=== PATIENT | male | born 1955 | race African-American/Black ===

== ENCOUNTER 2019-01-29 07:43 | Inpatient (IN) | payer SELFPAY ==
[~2019-01-29] VITALS: Ht 185.4 cm; Wt 81.8 kg
[2019-01-29] MEDS ORDERED: IPRATROPIUM BROMIDE (0.02%) 0.5MG/2.5ML NEB HHN STA (08:05)
[2019-01-29] MEDS ORDERED: ALBUTEROL (0.083%) 2.5MG/3ML NEB HHN STA (08:05)
[2019-01-29] MEDS ORDERED: METHYLPREDNISOLONE SOD SUCC 125 MG/2 ML VIAL IV STA (08:05)
[2019-01-29] MEDS ORDERED: ASPIRIN 81MG TABLET PO ONE (08:15)
[2019-01-29 09:16] LABS: BASOPHILS % 0.3 % (0.0-2.0); LYMPHOCYTES % 8.3 % (20.0-50.0); MEAN CORPUSCULAR HEMOGLOBIN 29.7 pg (28.0-32.0); MEAN CORPUSCULAR VOLUME 93.1 fL (80.0-94.0); MEAN PLATELET VOLUME 9.2 fl (7.4-10.4); NEUTROPHILS % 86.4 % (40.0-76.0); PLATELET 167 x1000/uL (130-400); RED BLOOD CELL COUNT 2.24 mill/uL (4.7-6.1); RED CELL DISTRIBUTION WIDTH 17.2 % (11.6-14.6)
[2019-01-29 09:17] LABS: CHLORIDE 110 mEq/L (98-107)
[2019-01-29 09:20] LABS: HEMATOCRIT. 20.9 % (42.0-52.0); HEMOGLOBIN. 6.7 g/dL (14.0-18.0)
[2019-01-29 09:44] LABS: D-DIMER 3.17 mg/L FEU (<0.50); PARTIAL THROMBOPLASTIN TIME 26.1 sec (23.4-31.0); PROTHROMBIN TIME 10.5 sec (9.6-11.0)
[2019-01-29] MEDS ORDERED: LIDOCAINE HCL 1% 20ML VIAL (Pyxis) INJ ONE (11:42)
[2019-01-29] MEDS ORDERED: SODIUM BICARBONATE 4% (2.4MEQ) 5ML VIAL IV ONE (11:42)
[2019-01-29] MEDS ORDERED: SODIUM BICARBONATE 8.4% 1 MEQ/ML 50ML SYR IV ONE (14:00)
[2019-01-29 14:27] LABS: CREATINE KINASE 744 IU/L (39-308)
[2019-01-29] MEDS ORDERED: HYDRALAZINE 20MG/ML VIAL IV PRN (15:45)
[2019-01-29] MEDS ORDERED: IPRATROPIUM/ALBUTEROL 0.5-3(2.5)MG/3ML NEB HHN PRN (15:45)
[2019-01-29] MEDS ORDERED: MAGNESIUM/ALUMINUM HYDROXIDE/SIMETHICONE 30ML UDC PO PRN (15:45)
[2019-01-29] MEDS ORDERED: ONDANSETRON HCL 4MG/2ML INJ IV PRN (15:45)
[2019-01-29] MEDS ORDERED: SODIUM POLYSTYRENE SULFONATE 15 G/60 ML BOT PO ONE (16:30)
[2019-01-29 21:30] VITALS: BP 181/44
[2019-01-29 21:41] VITALS: BP 150/110
[2019-01-29 22:00] VITALS: BP 102/68
[2019-01-29] MEDS: NITROGLYCERIN OINT 1GM/INCH UDPKT TD SCH (22:00)
[2019-01-30] VITALS (17 sets, daily range): BP systolic 97–166; BP diastolic 62–102
[2019-01-30] MEDS: EPOETIN ALFA 10000UNITS/ML VIAL SUBCUT SCH (03:01)
[2019-01-30] MEDS: FAMOTIDINE 20MG TABLET PO SCH ×2 (03:01→21:50)
[2019-01-30] MEDS: NITROGLYCERIN OINT 1GM/INCH UDPKT TD SCH ×4 (03:01→21:50)
[2019-01-30] MEDS: CLONIDINE 0.1MG TABLET PO PRN (03:01)
[2019-01-30] MEDS: SODIUM CHLORIDE 0.9% INJ 3ML FLUSH IVF SCH ×4 (03:03→21:51)
[2019-01-30 06:52] LABS: BASOPHILS % 0.2 % (0.0-2.0); LYMPHOCYTES % 9.4 % (20.0-50.0); MEAN CORPUSCULAR HEMOGLOBIN 30.5 pg (28.0-32.0); MEAN CORPUSCULAR VOLUME 91.2 fL (80.0-94.0); MEAN PLATELET VOLUME 9.7 fl (7.4-10.4); MONOCYTES % 8.5 % (2.0-8.0); NEUTROPHILS % 81.9 % (40.0-76.0); PLATELET 116 x1000/uL (130-400); RED BLOOD CELL COUNT 1.77 mill/uL (4.7-6.1); RED CELL DISTRIBUTION WIDTH 16.6 % (11.6-14.6)
[2019-01-30 07:43] LABS: PHOSPHORUS 6.5 mg/dL (2.5-4.9)
[2019-01-30 08:32] LABS: HEMATOCRIT. 16.2 % (42.0-52.0); HEMOGLOBIN. 5.4 g/dL (14.0-18.0)
[2019-01-30 09:35] LABS: CLARITY URINE CLEAR (CLEAR); COLOR URINE RED (YELLOW); KETONES URINE NEGATIVE (NEGATIVE); LEUKOCYTE ESTERASE URINE TRACE (NEGATIVE); NITRITE URINE NEGATIVE (NEGATIVE); OCCULT BLOOD URINE 3+ (NEGATIVE); PH URINE 6.5 (4.5-8.0); PROTEIN URINE 2+ (NEGATIVE); SPECIFIC GRAVITY URINE 1.011 (1.005-1.030); UROBILINOGEN URINE 0.2 E.U./dL (0.2-1.0)
[2019-01-30] MEDS ORDERED: AMLODIPINE 2.5MG TABLET PO SCH (11:00)
[2019-01-30 12:10] LABS: TOTAL IRON BINDING CAPACITY 187 ug/dL (250-450)
[2019-01-30] MEDS: AMLODIPINE 5MG TABLET PO SCH ×2 (17:49→21:50)
[2019-01-30] MEDS: ATORVASTATIN CALCIUM 20MG TABLET PO SCH (21:49)
[2019-01-30] MEDS: METOPROLOL TARTRATE 25MG TABLET PO SCH (21:50)
[2019-01-31] VITALS (21 sets, daily range): BP systolic 127–165; BP diastolic 71–104
[2019-01-31] MEDS: NITROGLYCERIN OINT 1GM/INCH UDPKT TD SCH ×3 (05:46→23:00)
[2019-01-31] MEDS: SODIUM CHLORIDE 0.9% INJ 3ML FLUSH IVF SCH ×2 (05:47→22:00)
[2019-01-31 06:43] LABS: BASOPHILS % 0.3 % (0.0-2.0); EOSINOPHILS % 0.7 % (0.0-5.0); HEMATOCRIT. 23.5 % (42.0-52.0); HEMOGLOBIN. 7.8 g/dL (14.0-18.0); LYMPHOCYTES % 15.5 % (20.0-50.0); MEAN CORPUSCULAR HEMOGLOBIN 29.6 pg (28.0-32.0); MEAN CORPUSCULAR VOLUME 88.5 fL (80.0-94.0); MEAN PLATELET VOLUME 9.4 fl (7.4-10.4); MONOCYTES % 10.3 % (2.0-8.0); NEUTROPHILS % 73.2 % (40.0-76.0); PLATELET 103 x1000/uL (130-400); RED BLOOD CELL COUNT 2.65 mill/uL (4.7-6.1); RED CELL DISTRIBUTION WIDTH 18.5 % (11.6-14.6)
[2019-01-31 07:01] LABS: CREATINE KINASE MB FRACTION 2.9 ng/mL (0.5-3.6)
[2019-01-31 07:07] LABS: PHOSPHORUS 5.9 mg/dL (2.5-4.9)
[2019-01-31] MEDS: METOPROLOL TARTRATE 25MG TABLET PO SCH ×2 (08:07→22:59)
[2019-01-31] MEDS: AMLODIPINE 5MG TABLET PO SCH ×2 (08:09→23:00)
[2019-01-31] MEDS ORDERED: CEFAZOLIN 1000MG PREMIX 50 ML IV SCH (11:30)
[2019-01-31] MEDS ORDERED: CEFAZOLIN 1000MG PREMIX 50 ML IV ONE (12:47)
[2019-01-31] MEDS ORDERED: SODIUM BICARBONATE 4% (2.4MEQ) 5ML VIAL IV ONE (12:47)
[2019-01-31] MEDS ORDERED: LIDOCAINE HCL 1% 20ML VIAL (Pyxis) INJ ONE ×2 (12:47→13:42)
[2019-01-31] MEDS ORDERED: FENTANYL CITRATE/PF 50MCG/ML 2ML VIAL ONE (12:51)
[2019-01-31] MEDS ORDERED: FENTANYL CITRATE/PF 50MCG/ML 2ML VIAL IV ONE ×2 (13:15→13:25)
[2019-01-31] MEDS ORDERED: FENTANYL CITRATE/PF 50MCG/ML 2ML VIAL IV SCH (14:00)
[2019-01-31 15:31] LABS: HEPATITIS B SURFACE AB < 3.1 mIU/mL
[2019-01-31 15:41] LABS: HEPATITIS B SURFACE ANTIGEN NEGATIVE
[2019-01-31] MEDS: ATORVASTATIN CALCIUM 20MG TABLET PO SCH (22:59)
[2019-01-31] MEDS: FAMOTIDINE 20MG TABLET PO SCH (23:00)
[2019-01-31] MEDS: EPOETIN ALFA 10000UNITS/ML VIAL SUBCUT SCH (23:01)
[2019-02-01] VITALS (11 sets, daily range): BP systolic 120–149; BP diastolic 75–88
[2019-02-01 05:14] LABS: HIV SCREEN 4G Non Reactive (Non Reactive)
[2019-02-01] MEDS: SODIUM CHLORIDE 0.9% INJ 3ML FLUSH IVF SCH ×3 (06:08→21:24)
[2019-02-01] MEDS: NITROGLYCERIN OINT 1GM/INCH UDPKT TD SCH ×3 (06:09→23:21)
[2019-02-01 06:32] LABS: BASOPHILS % 0.6 % (0.0-2.0); EOSINOPHILS % 1.5 % (0.0-5.0); HEMATOCRIT. 24.2 % (42.0-52.0); HEMOGLOBIN. 8.1 g/dL (14.0-18.0); LYMPHOCYTES % 14.5 % (20.0-50.0); MEAN CORPUSCULAR HEMOGLOBIN 29.7 pg (28.0-32.0); MEAN CORPUSCULAR VOLUME 88.6 fL (80.0-94.0); MEAN PLATELET VOLUME 9.8 fl (7.4-10.4); MONOCYTES % 10.3 % (2.0-8.0); NEUTROPHILS % 73.1 % (40.0-76.0); PLATELET 108 x1000/uL (130-400); RED BLOOD CELL COUNT 2.73 mill/uL (4.7-6.1); RED CELL DISTRIBUTION WIDTH 17.8 % (11.6-14.6)
[2019-02-01] MEDS: AMLODIPINE 5MG TABLET PO SCH ×2 (09:00→22:31)
[2019-02-01] MEDS: METOPROLOL TARTRATE 25MG TABLET PO SCH ×2 (09:00→21:24)
[2019-02-01] MEDS: ATORVASTATIN CALCIUM 20MG TABLET PO SCH (21:24)
[2019-02-01] MEDS: FAMOTIDINE 20MG TABLET PO SCH (21:24)
[2019-02-02] VITALS (12 sets, daily range): BP systolic 118–152; BP diastolic 69–99
[2019-02-02] MEDS: SODIUM CHLORIDE 0.9% INJ 3ML FLUSH IVF SCH ×3 (05:51→21:06)
[2019-02-02] MEDS: NITROGLYCERIN OINT 1GM/INCH UDPKT TD SCH ×3 (05:53→21:49)
[2019-02-02 06:36] LABS: BASOPHILS % 0.4 % (0.0-2.0); EOSINOPHILS % 2.6 % (0.0-5.0); HEMATOCRIT. 23.8 % (42.0-52.0); HEMOGLOBIN. 7.9 g/dL (14.0-18.0); LYMPHOCYTES % 15.8 % (20.0-50.0); MEAN CORPUSCULAR VOLUME 90.2 fL (80.0-94.0); MEAN PLATELET VOLUME 9.4 fl (7.4-10.4); MONOCYTES % 12.4 % (2.0-8.0); NEUTROPHILS % 68.8 % (40.0-76.0); PLATELET 106 x1000/uL (130-400); RED BLOOD CELL COUNT 2.64 mill/uL (4.7-6.1); RED CELL DISTRIBUTION WIDTH 17.8 % (11.6-14.6)
[2019-02-02 06:38] LABS: PHOSPHORUS 4.6 mg/dL (2.5-4.9)
[2019-02-02] MEDS: AMLODIPINE 5MG TABLET PO SCH ×2 (08:51→21:05)
[2019-02-02] MEDS: METOPROLOL TARTRATE 25MG TABLET PO SCH (08:51)
[2019-02-02 13:10] LABS: COMPLEMENT C3 72 mg/dL (82-167)
[2019-02-02] MEDS: FAMOTIDINE 20MG TABLET PO SCH (21:04)
[2019-02-02] MEDS: CARVEDILOL 6.25 MG TABLET PO SCH (21:04)
[2019-02-02] MEDS: ATORVASTATIN CALCIUM 20MG TABLET PO SCH (21:04)
[2019-02-02] MEDS: EPOETIN ALFA 10000UNITS/ML VIAL SUBCUT SCH (21:49)
[2019-02-03] VITALS (12 sets, daily range): BP systolic 107–154; BP diastolic 56–86
[2019-02-03] MEDS: SODIUM CHLORIDE 0.9% INJ 3ML FLUSH IVF SCH ×3 (05:03→21:49)
[2019-02-03] MEDS: NITROGLYCERIN OINT 1GM/INCH UDPKT TD SCH ×3 (05:20→21:50)
[2019-02-03 07:13] LABS: BASOPHILS % 0.5 % (0.0-2.0); HEMATOCRIT. 23.2 % (42.0-52.0); HEMOGLOBIN. 7.7 g/dL (14.0-18.0); LYMPHOCYTES % 16.1 % (20.0-50.0); MEAN CORPUSCULAR HEMOGLOBIN 30.1 pg (28.0-32.0); MEAN CORPUSCULAR VOLUME 90.2 fL (80.0-94.0); MEAN PLATELET VOLUME 9.2 fl (7.4-10.4); MONOCYTES % 12.6 % (2.0-8.0); NEUTROPHILS % 67.8 % (40.0-76.0); PLATELET 115 x1000/uL (130-400); RED BLOOD CELL COUNT 2.57 mill/uL (4.7-6.1); RED CELL DISTRIBUTION WIDTH 17.4 % (11.6-14.6)
[2019-02-03] MEDS: AMLODIPINE 5MG TABLET PO SCH ×2 (09:00→21:49)
[2019-02-03 09:11] LABS: ANTI-MYELOPEROXIDASE AB < 9.0 U/mL (0.0-9.0); ANTI-PROTEINASE 3 ABS < 3.5 U/mL (0.0-3.5)
[2019-02-03] MEDS: CARVEDILOL 6.25 MG TABLET PO SCH ×2 (09:29→21:49)
[2019-02-03] MEDS ORDERED: MAGNESIUM 1 G PREMIX 100 ML IV NR (18:00)
[2019-02-03] MEDS: FAMOTIDINE 20MG TABLET PO SCH (21:49)
[2019-02-03] MEDS: ATORVASTATIN CALCIUM 20MG TABLET PO SCH (21:49)
[2019-02-04] VITALS (14 sets, daily range): BP systolic 105–138; BP diastolic 52–91
[2019-02-04] MEDS: NITROGLYCERIN OINT 1GM/INCH UDPKT TD SCH ×3 (06:29→22:38)
[2019-02-04] MEDS: SODIUM CHLORIDE 0.9% INJ 3ML FLUSH IVF SCH ×3 (06:29→22:39)
[2019-02-04 06:37] LABS: HEMATOCRIT. 21.9 % (42.0-52.0); HEMOGLOBIN. 7.3 g/dL (14.0-18.0); MEAN CORPUSCULAR HEMOGLOBIN 30.1 pg (28.0-32.0); MEAN CORPUSCULAR VOLUME 89.9 fL (80.0-94.0); PLATELET 115 x1000/uL (130-400); RED BLOOD CELL COUNT 2.43 mill/uL (4.7-6.1); RED CELL DISTRIBUTION WIDTH 17.5 % (11.6-14.6)
[2019-02-04 06:38] LABS: PHOSPHORUS 5.2 mg/dL (2.5-4.9)
[2019-02-04] MEDS: AMLODIPINE 5MG TABLET PO SCH ×2 (09:00→22:37)
[2019-02-04] MEDS: CARVEDILOL 6.25 MG TABLET PO SCH ×2 (09:00→22:37)
[2019-02-04 13:10] LABS: GLOMERULAR BASEMENT MEMB AB 3 units (0-20)
[2019-02-04 14:01] LABS: PLATELET ESTIMATE DECREASED
[2019-02-04 15:12] LABS: ATYPICAL P-ANCA <1:20 titer (Neg:<1:20); CYTOPLASMIC C-ANCA <1:20 titer (Neg:<1:20); PERINUCLEAR P-ANCA <1:20 titer (Neg:<1:20)
[2019-02-04] MEDS: ATORVASTATIN CALCIUM 20MG TABLET PO SCH (22:32)
[2019-02-04] MEDS: FAMOTIDINE 20MG TABLET PO SCH (22:32)
[2019-02-04] MEDS: EPOETIN ALFA 10000UNITS/ML VIAL SUBCUT SCH (22:38)
[2019-02-05] VITALS (8 sets, daily range): BP systolic 113–140; BP diastolic 64–82
[2019-02-05 06:09] LABS: HEMATOCRIT. 21.4 % (42.0-52.0); HEMOGLOBIN. 7.1 g/dL (14.0-18.0); MEAN CORPUSCULAR HEMOGLOBIN 29.9 pg (28.0-32.0); MEAN CORPUSCULAR VOLUME 90.6 fL (80.0-94.0); MEAN PLATELET VOLUME 8.7 fl (7.4-10.4); PLATELET 110 x1000/uL (130-400); RED BLOOD CELL COUNT 2.36 mill/uL (4.7-6.1); RED CELL DISTRIBUTION WIDTH 17.3 % (11.6-14.6)
[2019-02-05] MEDS: NITROGLYCERIN OINT 1GM/INCH UDPKT TD SCH ×2 (06:43→20:54)
[2019-02-05] MEDS: SODIUM CHLORIDE 0.9% INJ 3ML FLUSH IVF SCH ×2 (06:43→20:54)
[2019-02-05 07:29] LABS: PHOSPHORUS 4.7 mg/dL (2.5-4.9)
[2019-02-05] MEDS: AMLODIPINE 5MG TABLET PO SCH ×2 (09:00→20:53)
[2019-02-05] MEDS: CARVEDILOL 6.25 MG TABLET PO SCH ×2 (09:12→20:53)
[2019-02-05 16:10] LABS: PLATELET ESTIMATE DECREASED
[2019-02-05] MEDS: FAMOTIDINE 20MG TABLET PO SCH (20:53)
[2019-02-05] MEDS: ATORVASTATIN CALCIUM 20MG TABLET PO SCH (20:53)
[2019-02-06 00:21] VITALS: BP 122/75
[2019-02-06 04:00] VITALS: BP 122/75
[2019-02-06] MEDS: SODIUM CHLORIDE 0.9% INJ 3ML FLUSH IVF SCH ×3 (05:51→22:04)
[2019-02-06] MEDS: NITROGLYCERIN OINT 1GM/INCH UDPKT TD SCH ×3 (05:51→22:04)
[2019-02-06 06:30] LABS: BASOPHILS % 0.4 % (0.0-2.0); EOSINOPHILS % 1.9 % (0.0-5.0); HEMATOCRIT. 21.7 % (42.0-52.0); HEMOGLOBIN. 7.1 g/dL (14.0-18.0); LYMPHOCYTES % 26.6 % (20.0-50.0); MEAN CORPUSCULAR VOLUME 91.3 fL (80.0-94.0); MEAN PLATELET VOLUME 9.2 fl (7.4-10.4); MONOCYTES % 14.2 % (2.0-8.0); NEUTROPHILS % 56.9 % (40.0-76.0); PLATELET 118 x1000/uL (130-400); RED BLOOD CELL COUNT 2.38 mill/uL (4.7-6.1); RED CELL DISTRIBUTION WIDTH 17.4 % (11.6-14.6)
[2019-02-06 08:00] VITALS: BP 118/77
[2019-02-06] MEDS: CARVEDILOL 6.25 MG TABLET PO SCH ×2 (08:34→22:02)
[2019-02-06] MEDS: AMLODIPINE 5MG TABLET PO SCH ×2 (08:34→22:01)
[2019-02-06 12:00] VITALS: BP 104/61
[2019-02-06] MEDS ORDERED: MAGNESIUM 1 G PREMIX 100 ML IV NR (12:00)
[2019-02-06 16:00] VITALS: BP 122/76
[2019-02-06 20:00] VITALS: BP 122/76
[2019-02-06] MEDS: ATORVASTATIN CALCIUM 20MG TABLET PO SCH (22:01)
[2019-02-06] MEDS: FAMOTIDINE 20MG TABLET PO SCH (22:02)
[2019-02-06] MEDS: EPOETIN ALFA 10000UNITS/ML VIAL SUBCUT SCH (22:03)
[2019-02-07] VITALS (7 sets, daily range): BP systolic 105–148; BP diastolic 59–87
[2019-02-07] MEDS: NITROGLYCERIN OINT 1GM/INCH UDPKT TD SCH ×3 (06:55→23:02)
[2019-02-07] MEDS: SODIUM CHLORIDE 0.9% INJ 3ML FLUSH IVF SCH ×2 (06:56→14:02)
[2019-02-07 07:43] LABS: BASOPHILS % 0.3 % (0.0-2.0); HEMATOCRIT. 21.6 % (42.0-52.0); HEMOGLOBIN. 7.1 g/dL (14.0-18.0); LYMPHOCYTES % 22.2 % (20.0-50.0); MEAN CORPUSCULAR HEMOGLOBIN 30.2 pg (28.0-32.0); MEAN PLATELET VOLUME 8.8 fl (7.4-10.4); MONOCYTES % 11.1 % (2.0-8.0); NEUTROPHILS % 64.4 % (40.0-76.0); PLATELET 127 x1000/uL (130-400); RED BLOOD CELL COUNT 2.35 mill/uL (4.7-6.1); RED CELL DISTRIBUTION WIDTH 18.2 % (11.6-14.6)
[2019-02-07 08:02] LABS: PHOSPHORUS 4.7 mg/dL (2.5-4.9)
[2019-02-07] MEDS: AMLODIPINE 5MG TABLET PO SCH ×2 (09:00→23:01)
[2019-02-07] MEDS: CARVEDILOL 6.25 MG TABLET PO SCH ×2 (10:14→23:01)
[2019-02-07] MEDS: FAMOTIDINE 20MG TABLET PO SCH (23:00)
[2019-02-07] MEDS: ATORVASTATIN CALCIUM 20MG TABLET PO SCH (23:01)
[2019-02-08] VITALS (7 sets, daily range): BP systolic 120–149; BP diastolic 66–84
[2019-02-08] MEDS: SODIUM CHLORIDE 0.9% INJ 3ML FLUSH IVF SCH ×4 (06:27→20:44)
[2019-02-08] MEDS: NITROGLYCERIN OINT 1GM/INCH UDPKT TD SCH ×3 (06:27→21:03)
[2019-02-08 07:39] LABS: BASOPHILS % 0.4 % (0.0-2.0); EOSINOPHILS % 1.7 % (0.0-5.0); HEMATOCRIT. 22.2 % (42.0-52.0); HEMOGLOBIN. 7.2 g/dL (14.0-18.0); LYMPHOCYTES % 22.7 % (20.0-50.0); MEAN CORPUSCULAR VOLUME 92.1 fL (80.0-94.0); MEAN PLATELET VOLUME 8.6 fl (7.4-10.4); MONOCYTES % 12.4 % (2.0-8.0); NEUTROPHILS % 62.8 % (40.0-76.0); PLATELET 129 x1000/uL (130-400); RED BLOOD CELL COUNT 2.41 mill/uL (4.7-6.1); RED CELL DISTRIBUTION WIDTH 18.1 % (11.6-14.6)
[2019-02-08 08:37] LABS: PHOSPHORUS 4.8 mg/dL (2.5-4.9)
[2019-02-08] MEDS: AMLODIPINE 5MG TABLET PO SCH ×2 (09:00→20:42)
[2019-02-08] MEDS: CARVEDILOL 6.25 MG TABLET PO SCH ×2 (10:47→20:43)
[2019-02-08 15:12] LABS: ANA IFA Negative (.)
[2019-02-08] MEDS: FAMOTIDINE 20MG TABLET PO SCH (20:42)
[2019-02-08] MEDS: ATORVASTATIN CALCIUM 20MG TABLET PO SCH (20:43)
[2019-02-08] MEDS: EPOETIN ALFA 10000UNITS/ML VIAL SUBCUT SCH (20:43)
[2019-02-09] VITALS: BP 145/74
[2019-02-09 04:00] VITALS: BP 128/80
[2019-02-09 06:32] LABS: BASOPHILS % 0.6 % (0.0-2.0); EOSINOPHILS % 1.6 % (0.0-5.0); HEMATOCRIT. 22.4 % (42.0-52.0); HEMOGLOBIN. 7.4 g/dL (14.0-18.0); LYMPHOCYTES % 21.3 % (20.0-50.0); MEAN CORPUSCULAR HEMOGLOBIN 30.7 pg (28.0-32.0); MEAN CORPUSCULAR VOLUME 93.4 fL (80.0-94.0); MEAN PLATELET VOLUME 8.6 fl (7.4-10.4); MONOCYTES % 12.1 % (2.0-8.0); NEUTROPHILS % 64.4 % (40.0-76.0); PLATELET 120 x1000/uL (130-400); RED CELL DISTRIBUTION WIDTH 18.6 % (11.6-14.6)
[2019-02-09] MEDS: SODIUM CHLORIDE 0.9% INJ 3ML FLUSH IVF SCH ×3 (06:46→21:34)
[2019-02-09] MEDS: NITROGLYCERIN OINT 1GM/INCH UDPKT TD SCH ×3 (06:46→21:32)
[2019-02-09 06:58] LABS: PHOSPHORUS 3.9 mg/dL (2.5-4.9)
[2019-02-09 08:00] VITALS: BP 141/80
[2019-02-09] MEDS: CARVEDILOL 6.25 MG TABLET PO SCH ×2 (09:19→21:33)
[2019-02-09] MEDS: AMLODIPINE 5MG TABLET PO SCH ×2 (09:19→21:33)
[2019-02-09 12:00] VITALS: BP 134/75
[2019-02-09 16:00] VITALS: BP 147/87
[2019-02-09 20:00] VITALS: BP 126/78
[2019-02-09] MEDS: FAMOTIDINE 20MG TABLET PO SCH (21:33)
[2019-02-09] MEDS: ATORVASTATIN CALCIUM 20MG TABLET PO SCH (21:34)
[2019-02-10] VITALS: BP 143/84
[2019-02-10 04:00] VITALS: BP 157/83
[2019-02-10] MEDS: NITROGLYCERIN OINT 1GM/INCH UDPKT TD SCH (05:41)
[2019-02-10] MEDS: SODIUM CHLORIDE 0.9% INJ 3ML FLUSH IVF SCH ×3 (05:41→23:07)
[2019-02-10 07:29] LABS: BASOPHILS % 0.5 % (0.0-2.0); EOSINOPHILS % 1.9 % (0.0-5.0); HEMATOCRIT. 23.1 % (42.0-52.0); HEMOGLOBIN. 7.5 g/dL (14.0-18.0); LYMPHOCYTES % 20.5 % (20.0-50.0); MEAN CORPUSCULAR HEMOGLOBIN 30.6 pg (28.0-32.0); MEAN CORPUSCULAR VOLUME 93.9 fL (80.0-94.0); MEAN PLATELET VOLUME 8.2 fl (7.4-10.4); MONOCYTES % 11.7 % (2.0-8.0); NEUTROPHILS % 65.4 % (40.0-76.0); PLATELET 127 x1000/uL (130-400); RED BLOOD CELL COUNT 2.46 mill/uL (4.7-6.1); RED CELL DISTRIBUTION WIDTH 19.1 % (11.6-14.6)
[2019-02-10 08:00] VITALS: BP 145/80
[2019-02-10] MEDS: AMLODIPINE 5MG TABLET PO SCH ×2 (09:13→21:49)
[2019-02-10] MEDS: CARVEDILOL 6.25 MG TABLET PO SCH ×2 (09:13→21:49)
[2019-02-10 12:00] VITALS: BP 120/80
[2019-02-10 16:00] VITALS: BP 141/79
[2019-02-10 20:00] VITALS: BP 140/83
[2019-02-10] MEDS: ATORVASTATIN CALCIUM 20MG TABLET PO SCH (21:49)
[2019-02-10] MEDS: FAMOTIDINE 20MG TABLET PO SCH (21:49)
[2019-02-10] MEDS: HYDRALAZINE HCL 50MG TABLET PO SCH (21:49)
[2019-02-11] VITALS: BP 149/82
[2019-02-11 04:00] VITALS: BP 138/84
[2019-02-11] MEDS: SODIUM CHLORIDE 0.9% INJ 3ML FLUSH IVF SCH ×2 (05:23→14:00)
[2019-02-11 07:04] LABS: BASOPHILS % 0.4 % (0.0-2.0); EOSINOPHILS % 1.8 % (0.0-5.0); HEMATOCRIT. 26.3 % (42.0-52.0); HEMOGLOBIN. 8.6 g/dL (14.0-18.0); LYMPHOCYTES % 20.4 % (20.0-50.0); MEAN CORPUSCULAR HEMOGLOBIN 30.9 pg (28.0-32.0); MEAN CORPUSCULAR VOLUME 94.3 fL (80.0-94.0); MEAN PLATELET VOLUME 8.5 fl (7.4-10.4); MONOCYTES % 9.1 % (2.0-8.0); NEUTROPHILS % 68.3 % (40.0-76.0); PLATELET 144 x1000/uL (130-400); RED BLOOD CELL COUNT 2.79 mill/uL (4.7-6.1); RED CELL DISTRIBUTION WIDTH 20.1 % (11.6-14.6)
[2019-02-11 08:13] VITALS: BP 103/78
[2019-02-11] MEDS: AMLODIPINE 5MG TABLET PO SCH ×2 (09:08→21:51)
[2019-02-11] MEDS: HYDRALAZINE HCL 50MG TABLET PO SCH ×2 (09:08→21:51)
[2019-02-11] MEDS: CARVEDILOL 6.25 MG TABLET PO SCH ×2 (09:09→21:46)
[2019-02-11 12:08] VITALS: BP 152/87
[2019-02-11 16:25] VITALS: BP 162/83
[2019-02-11 20:00] VITALS: BP 139/84
[2019-02-11] MEDS: ATORVASTATIN CALCIUM 20MG TABLET PO SCH (21:46)
[2019-02-11] MEDS: FAMOTIDINE 20MG TABLET PO SCH (21:51)
[2019-02-12] VITALS: BP 130/82
[2019-02-12 04:00] VITALS: BP 127/79
[2019-02-12 07:41] LABS: BASOPHILS % 0.4 % (0.0-2.0); EOSINOPHILS % 1.7 % (0.0-5.0); HEMOGLOBIN. 7.9 g/dL (14.0-18.0); LYMPHOCYTES % 21.6 % (20.0-50.0); MEAN CORPUSCULAR HEMOGLOBIN 30.8 pg (28.0-32.0); MEAN CORPUSCULAR VOLUME 93.2 fL (80.0-94.0); MEAN PLATELET VOLUME 8.2 fl (7.4-10.4); MONOCYTES % 10.1 % (2.0-8.0); NEUTROPHILS % 66.2 % (40.0-76.0); PLATELET 125 x1000/uL (130-400); RED BLOOD CELL COUNT 2.57 mill/uL (4.7-6.1); RED CELL DISTRIBUTION WIDTH 19.6 % (11.6-14.6)
[2019-02-12 08:00] VITALS: BP 152/82
[2019-02-12 08:04] LABS: PHOSPHORUS 4.3 mg/dL (2.5-4.9)
[2019-02-12] MEDS: CARVEDILOL 6.25 MG TABLET PO SCH ×2 (08:59→20:19)
[2019-02-12] MEDS: AMLODIPINE 5MG TABLET PO SCH ×2 (08:59→20:19)
[2019-02-12] MEDS: HYDRALAZINE HCL 50MG TABLET PO SCH ×2 (08:59→20:19)
[2019-02-12 12:00] VITALS: BP 113/63
[2019-02-12 16:00] VITALS: BP 130/83
[2019-02-12 20:00] VITALS: BP 146/89
[2019-02-12] MEDS: FAMOTIDINE 20MG TABLET PO SCH (20:19)
[2019-02-12] MEDS: ATORVASTATIN CALCIUM 20MG TABLET PO SCH (20:19)
[2019-02-12] MEDS: SODIUM CHLORIDE 0.9% INJ 3ML FLUSH IVF SCH (22:59)
[2019-02-13] VITALS: BP 130/80
[2019-02-13 04:00] VITALS: BP 130/82
[2019-02-13] MEDS: SODIUM CHLORIDE 0.9% INJ 3ML FLUSH IVF SCH ×3 (06:06→21:39)
[2019-02-13 07:32] LABS: BASOPHILS % 0.4 % (0.0-2.0); LYMPHOCYTES % 22.3 % (20.0-50.0); MEAN CORPUSCULAR HEMOGLOBIN 31.1 pg (28.0-32.0); MEAN CORPUSCULAR VOLUME 93.4 fL (80.0-94.0); MEAN PLATELET VOLUME 8.3 fl (7.4-10.4); MONOCYTES % 10.1 % (2.0-8.0); NEUTROPHILS % 65.2 % (40.0-76.0); PLATELET 129 x1000/uL (130-400); RED BLOOD CELL COUNT 2.56 mill/uL (4.7-6.1); RED CELL DISTRIBUTION WIDTH 20.6 % (11.6-14.6)
[2019-02-13 07:55] LABS: PHOSPHORUS 5.2 mg/dL (2.5-4.9)
[2019-02-13 08:00] VITALS: BP 133/87
[2019-02-13] MEDS: CARVEDILOL 6.25 MG TABLET PO SCH ×2 (08:45→21:40)
[2019-02-13] MEDS: HYDRALAZINE HCL 50MG TABLET PO SCH ×2 (08:45→21:00)
[2019-02-13] MEDS: AMLODIPINE 5MG TABLET PO SCH ×2 (08:45→21:00)
[2019-02-13 12:30] VITALS: BP 114/69
[2019-02-13 15:42] VITALS: BP 126/70
[2019-02-13 20:00] VITALS: BP 110/77
[2019-02-13] MEDS: FAMOTIDINE 20MG TABLET PO SCH (21:39)
[2019-02-13] MEDS: ATORVASTATIN CALCIUM 20MG TABLET PO SCH (21:39)
[2019-02-14] VITALS: BP 105/68
[2019-02-14 04:00] VITALS: BP 134/82
[2019-02-14] MEDS: SODIUM CHLORIDE 0.9% INJ 3ML FLUSH IVF SCH ×2 (05:34→14:18)
[2019-02-14 07:18] LABS: BASOPHILS % 0.5 % (0.0-2.0); EOSINOPHILS % 1.3 % (0.0-5.0); HEMATOCRIT. 23.5 % (42.0-52.0); HEMOGLOBIN. 7.8 g/dL (14.0-18.0); LYMPHOCYTES % 20.5 % (20.0-50.0); MEAN CORPUSCULAR HEMOGLOBIN 31.3 pg (28.0-32.0); MEAN CORPUSCULAR VOLUME 94.2 fL (80.0-94.0); MEAN PLATELET VOLUME 8.9 fl (7.4-10.4); MONOCYTES % 11.1 % (2.0-8.0); NEUTROPHILS % 66.6 % (40.0-76.0); PLATELET 119 x1000/uL (130-400); RED BLOOD CELL COUNT 2.49 mill/uL (4.7-6.1); RED CELL DISTRIBUTION WIDTH 21.2 % (11.6-14.6)
[2019-02-14 08:00] VITALS: BP 136/82
[2019-02-14 08:25] LABS: PHOSPHORUS 4.4 mg/dL (2.5-4.9)
[2019-02-14] MEDS: CARVEDILOL 6.25 MG TABLET PO SCH ×2 (09:52→20:26)
[2019-02-14] MEDS: AMLODIPINE 5MG TABLET PO SCH ×2 (09:52→20:26)
[2019-02-14] MEDS: HYDRALAZINE HCL 50MG TABLET PO SCH ×2 (09:52→20:26)
[2019-02-14 12:00] VITALS: BP 131/74
[2019-02-14 14:00] VITALS: BP 144/85
[2019-02-14 20:00] VITALS: BP 151/92
[2019-02-14] MEDS: ATORVASTATIN CALCIUM 20MG TABLET PO SCH (20:25)
[2019-02-14] MEDS: FAMOTIDINE 20MG TABLET PO SCH (20:25)
[2019-02-15] VITALS: BP 148/88
[2019-02-15 04:00] VITALS: BP 154/87
[2019-02-15 07:27] LABS: BASOPHILS % 0.7 % (0.0-2.0); HEMATOCRIT. 27.5 % (42.0-52.0); HEMOGLOBIN. 9.2 g/dL (14.0-18.0); LYMPHOCYTES % 20.2 % (20.0-50.0); MEAN CORPUSCULAR HEMOGLOBIN 31.2 pg (28.0-32.0); MEAN CORPUSCULAR VOLUME 93.4 fL (80.0-94.0); MEAN PLATELET VOLUME 8.6 fl (7.4-10.4); MONOCYTES % 9.1 % (2.0-8.0); PLATELET 133 x1000/uL (130-400); RED BLOOD CELL COUNT 2.94 mill/uL (4.7-6.1); RED CELL DISTRIBUTION WIDTH 20.7 % (11.6-14.6)
[2019-02-15 07:33] LABS: PHOSPHORUS 5.3 mg/dL (2.5-4.9)
[2019-02-15 08:00] VITALS: BP 157/96
[2019-02-15] MEDS: AMLODIPINE 5MG TABLET PO SCH ×2 (08:21→21:58)
[2019-02-15] MEDS: CARVEDILOL 6.25 MG TABLET PO SCH ×2 (08:22→21:58)
[2019-02-15] MEDS: HYDRALAZINE HCL 50MG TABLET PO SCH ×2 (08:22→21:58)
[2019-02-15 12:00] VITALS: BP 123/63
[2019-02-15] MEDS: SODIUM CHLORIDE 0.9% INJ 3ML FLUSH IVF SCH (14:00)
[2019-02-15 16:00] VITALS: BP 145/89
[2019-02-15 20:00] VITALS: BP 142/92
[2019-02-15] MEDS: FAMOTIDINE 20MG TABLET PO SCH (21:58)
[2019-02-15] MEDS: ATORVASTATIN CALCIUM 20MG TABLET PO SCH (21:58)
[2019-02-16] VITALS: BP 152/87
[2019-02-16 04:00] VITALS: BP 153/94
[2019-02-16 07:51] LABS: BASOPHILS % 0.5 % (0.0-2.0); HEMATOCRIT. 25.5 % (42.0-52.0); HEMOGLOBIN. 8.3 g/dL (14.0-18.0); LYMPHOCYTES % 20.5 % (20.0-50.0); MEAN CORPUSCULAR VOLUME 94.7 fL (80.0-94.0); MEAN PLATELET VOLUME 8.7 fl (7.4-10.4); PHOSPHORUS 4.7 mg/dL (2.5-4.9); PLATELET 126 x1000/uL (130-400); RED BLOOD CELL COUNT 2.69 mill/uL (4.7-6.1); RED CELL DISTRIBUTION WIDTH 20.9 % (11.6-14.6)
[2019-02-16] MEDS: AMLODIPINE 5MG TABLET PO SCH ×2 (08:55→21:12)
[2019-02-16] MEDS: HYDRALAZINE HCL 50MG TABLET PO SCH ×2 (08:55→21:10)
[2019-02-16] MEDS: CARVEDILOL 6.25 MG TABLET PO SCH ×2 (08:55→21:11)
[2019-02-16] MEDS: SODIUM CHLORIDE 0.9% INJ 3ML FLUSH IVF SCH ×2 (14:00→22:51)
[2019-02-16] MEDS: TAMSULOSIN HCL 0.4MG SR CAPSULE PO SCH (15:08)
[2019-02-16] MEDS: FINASTERIDE 5MG TABLET PO SCH (15:08)
[2019-02-16] MEDS: ACETAMINOPHEN 325MG TABLET PO PRN ×2 (17:40→21:10)
[2019-02-16] MEDS: ATORVASTATIN CALCIUM 20MG TABLET PO SCH (21:11)
[2019-02-16] MEDS: FAMOTIDINE 20MG TABLET PO SCH (21:14)
[2019-02-16] MEDS ORDERED: HYDRALAZINE 10 MG in SODIUM CHLORIDE 0.9% 49.5 ML IV PRN (23:00)
[2019-02-17] VITALS: BP 166/95
[2019-02-17] MEDS: CLONIDINE 0.1MG TABLET PO PRN (01:29)
[2019-02-17 04:00] VITALS: BP 127/78
[2019-02-17 05:42] LABS: PHOSPHORUS 4.4 mg/dL (2.5-4.9)
[2019-02-17 05:51] LABS: BASOPHILS % 0.2 % (0.0-2.0); EOSINOPHILS % 0.6 % (0.0-5.0); HEMATOCRIT. 30.5 % (42.0-52.0); HEMOGLOBIN. 9.9 g/dL (14.0-18.0); LYMPHOCYTES % 15.7 % (20.0-50.0); MEAN CORPUSCULAR HEMOGLOBIN 30.6 pg (28.0-32.0); MEAN CORPUSCULAR VOLUME 93.9 fL (80.0-94.0); MEAN PLATELET VOLUME 8.9 fl (7.4-10.4); MONOCYTES % 6.5 % (2.0-8.0); PLATELET 150 x1000/uL (130-400); RED BLOOD CELL COUNT 3.24 mill/uL (4.7-6.1); RED CELL DISTRIBUTION WIDTH 20.4 % (11.6-14.6)
[2019-02-17] MEDS: SODIUM CHLORIDE 0.9% INJ 3ML FLUSH IVF SCH ×4 (06:00→23:00)
[2019-02-17 08:00] VITALS: BP 143/96
[2019-02-17] MEDS: TAMSULOSIN HCL 0.4MG SR CAPSULE PO SCH (09:40)
[2019-02-17] MEDS: FINASTERIDE 5MG TABLET PO SCH (09:41)
[2019-02-17] MEDS: AMLODIPINE 5MG TABLET PO SCH ×2 (09:41→21:30)
[2019-02-17] MEDS: CARVEDILOL 6.25 MG TABLET PO SCH (09:41)
[2019-02-17] MEDS: HYDRALAZINE HCL 50MG TABLET PO SCH (09:41)
[2019-02-17 12:00] VITALS: BP 105/72
[2019-02-17] MEDS: ACETAMINOPHEN 325MG TABLET PO PRN (15:00)
[2019-02-17 16:00] VITALS: BP 126/78
[2019-02-17] MEDS: CARVEDILOL 12.5MG TABLET PO SCH (21:30)
[2019-02-17] MEDS: HYDRALAZINE HCL 100MG TABLET PO SCH (21:30)
[2019-02-17] MEDS: FAMOTIDINE 20MG TABLET PO SCH (21:47)
[2019-02-17] MEDS: ATORVASTATIN CALCIUM 20MG TABLET PO SCH (21:48)
[2019-02-18] MEDS: ACETAMINOPHEN 325MG TABLET PO PRN (02:59)
[2019-02-18 06:46] LABS: BASOPHILS % 0.4 % (0.0-2.0); EOSINOPHILS % 2.2 % (0.0-5.0); HEMATOCRIT. 28.5 % (42.0-52.0); HEMOGLOBIN. 9.4 g/dL (14.0-18.0); MEAN CORPUSCULAR HEMOGLOBIN 31.3 pg (28.0-32.0); MEAN CORPUSCULAR VOLUME 94.8 fL (80.0-94.0); MONOCYTES % 8.4 % (2.0-8.0); PLATELET 140 x1000/uL (130-400); RED BLOOD CELL COUNT 3.01 mill/uL (4.7-6.1); RED CELL DISTRIBUTION WIDTH 19.9 % (11.6-14.6)
[2019-02-18 07:32] LABS: PHOSPHORUS 4.9 mg/dL (2.5-4.9)
[2019-02-18 08:00] VITALS: BP 129/77
[2019-02-18] MEDS: HYDRALAZINE HCL 100MG TABLET PO SCH ×2 (09:00→21:25)
[2019-02-18] MEDS: CARVEDILOL 12.5MG TABLET PO SCH ×2 (09:00→21:23)
[2019-02-18] MEDS: AMLODIPINE 5MG TABLET PO SCH ×2 (09:00→21:24)
[2019-02-18] MEDS: FINASTERIDE 5MG TABLET PO SCH (09:34)
[2019-02-18] MEDS: TAMSULOSIN HCL 0.4MG SR CAPSULE PO SCH (09:34)
[2019-02-18 12:00] VITALS: BP 146/78
[2019-02-18] MEDS ORDERED: CEFTRIAXONE 1,000 MG in DEXTROSE 5% WATER 50 ML IV SCH ×2 (13:30→15:00)
[2019-02-18 16:00] VITALS: BP 129/84
[2019-02-18 20:00] VITALS: BP 132/84
[2019-02-18] MEDS: ATORVASTATIN CALCIUM 20MG TABLET PO SCH (21:23)
[2019-02-18] MEDS: FAMOTIDINE 20MG TABLET PO SCH (21:25)
[2019-02-18] MEDS: SODIUM CHLORIDE 0.9% INJ 3ML FLUSH IVF SCH (21:26)
[2019-02-19] VITALS (7 sets, daily range): BP systolic 109–139; BP diastolic 67–86
[2019-02-19 05:51] LABS: BASOPHILS % 0.3 % (0.0-2.0); EOSINOPHILS % 2.2 % (0.0-5.0); HEMATOCRIT. 27.1 % (42.0-52.0); HEMOGLOBIN. 8.9 g/dL (14.0-18.0); LYMPHOCYTES % 15.5 % (20.0-50.0); MEAN CORPUSCULAR HEMOGLOBIN 31.4 pg (28.0-32.0); MEAN CORPUSCULAR VOLUME 95.6 fL (80.0-94.0); MEAN PLATELET VOLUME 9.2 fl (7.4-10.4); MONOCYTES % 10.6 % (2.0-8.0); NEUTROPHILS % 71.4 % (40.0-76.0); PLATELET 121 x1000/uL (130-400); RED BLOOD CELL COUNT 2.84 mill/uL (4.7-6.1); RED CELL DISTRIBUTION WIDTH 20.1 % (11.6-14.6)
[2019-02-19] MEDS: SODIUM CHLORIDE 0.9% INJ 3ML FLUSH IVF SCH ×3 (06:40→22:41)
[2019-02-19] MEDS: FINASTERIDE 5MG TABLET PO SCH (09:54)
[2019-02-19] MEDS: AMLODIPINE 5MG TABLET PO SCH ×2 (09:54→21:00)
[2019-02-19] MEDS: CARVEDILOL 12.5MG TABLET PO SCH ×2 (09:54→22:48)
[2019-02-19] MEDS: HYDRALAZINE HCL 100MG TABLET PO SCH ×2 (09:55→21:00)
[2019-02-19] MEDS: TAMSULOSIN HCL 0.4MG SR CAPSULE PO SCH (10:06)
[2019-02-19] MEDS ORDERED: SODIUM POLYSTYRENE SULFONATE 15 G/60 ML BOT PO NR (14:30)
[2019-02-19] MEDS: FAMOTIDINE 20MG TABLET PO SCH (22:47)
[2019-02-19] MEDS: ATORVASTATIN CALCIUM 20MG TABLET PO SCH (22:48)
[2019-02-20] VITALS: BP 123/79
[2019-02-20 04:58] VITALS: BP 112/69
[2019-02-20 07:32] LABS: BASOPHILS % 0.3 % (0.0-2.0); HEMATOCRIT. 26.9 % (42.0-52.0); HEMOGLOBIN. 8.9 g/dL (14.0-18.0); LYMPHOCYTES % 18.5 % (20.0-50.0); MEAN CORPUSCULAR HEMOGLOBIN 31.3 pg (28.0-32.0); MEAN CORPUSCULAR VOLUME 94.8 fL (80.0-94.0); MEAN PLATELET VOLUME 9.4 fl (7.4-10.4); MONOCYTES % 9.7 % (2.0-8.0); NEUTROPHILS % 67.5 % (40.0-76.0); PLATELET 130 x1000/uL (130-400); RED BLOOD CELL COUNT 2.84 mill/uL (4.7-6.1); RED CELL DISTRIBUTION WIDTH 19.5 % (11.6-14.6)
[2019-02-20 08:00] VITALS: BP 128/75
[2019-02-20 08:55] LABS: PHOSPHORUS 5.9 mg/dL (2.5-4.9)
[2019-02-20] MEDS: HYDRALAZINE HCL 100MG TABLET PO SCH ×2 (09:00→21:00)
[2019-02-20] MEDS: AMLODIPINE 5MG TABLET PO SCH ×2 (09:00→21:00)
[2019-02-20] MEDS: FINASTERIDE 5MG TABLET PO SCH (09:00)
[2019-02-20] MEDS: TAMSULOSIN HCL 0.4MG SR CAPSULE PO SCH (09:00)
[2019-02-20] MEDS: CARVEDILOL 12.5MG TABLET PO SCH ×2 (09:00→21:37)
[2019-02-20] MEDS ORDERED: HEPARIN SODIUM 1,000 UNIT/1ML VIAL IV NR (09:30)
[2019-02-20 12:00] VITALS: BP 123/77
[2019-02-20 20:00] VITALS: BP 123/80
[2019-02-20] MEDS: ATORVASTATIN CALCIUM 20MG TABLET PO SCH (21:38)
[2019-02-20] MEDS: FAMOTIDINE 20MG TABLET PO SCH (21:39)
[2019-02-20] MEDS: ACETAMINOPHEN 325MG TABLET PO PRN (21:39)
[2019-02-20] MEDS: SODIUM CHLORIDE 0.9% INJ 3ML FLUSH IVF SCH (22:00)
[2019-02-20] MEDS: DIPHENHYDRAMINE 50MG/ML VIAL IV PRN (22:19)
[2019-02-21] VITALS: BP 124/73
[2019-02-21 04:00] VITALS: BP 146/92
[2019-02-21] MEDS: ACETAMINOPHEN 325MG TABLET PO PRN (05:25)
[2019-02-21 07:41] LABS: BASOPHILS % 0.4 % (0.0-2.0); EOSINOPHILS % 4.4 % (0.0-5.0); HEMATOCRIT. 26.3 % (42.0-52.0); HEMOGLOBIN. 8.7 g/dL (14.0-18.0); LYMPHOCYTES % 23.6 % (20.0-50.0); MEAN CORPUSCULAR HEMOGLOBIN 30.9 pg (28.0-32.0); MEAN CORPUSCULAR VOLUME 94.2 fL (80.0-94.0); MEAN PLATELET VOLUME 9.8 fl (7.4-10.4); MONOCYTES % 11.3 % (2.0-8.0); NEUTROPHILS % 60.3 % (40.0-76.0); PLATELET 115 x1000/uL (130-400); RED CELL DISTRIBUTION WIDTH 18.8 % (11.6-14.6)
[2019-02-21 07:55] LABS: PHOSPHORUS 6.2 mg/dL (2.5-4.9)
[2019-02-21 08:00] VITALS: BP 147/88
[2019-02-21] MEDS: HYDRALAZINE HCL 100MG TABLET PO SCH ×2 (09:35→20:39)
[2019-02-21] MEDS: CARVEDILOL 12.5MG TABLET PO SCH ×2 (09:36→20:36)
[2019-02-21] MEDS: AMLODIPINE 5MG TABLET PO SCH ×2 (09:36→20:39)
[2019-02-21] MEDS: FINASTERIDE 5MG TABLET PO SCH (09:36)
[2019-02-21] MEDS: TAMSULOSIN HCL 0.4MG SR CAPSULE PO SCH (09:36)
[2019-02-21 12:00] VITALS: BP 109/71
[2019-02-21] MEDS: CALCIUM ACETATE 667MG CAPSULE PO SCH ×2 (12:18→18:02)
[2019-02-21] MEDS: SODIUM CHLORIDE 0.9% INJ 3ML FLUSH IVF SCH ×2 (15:31→20:40)
[2019-02-21 16:00] VITALS: BP 104/61
[2019-02-21 20:00] VITALS: BP 111/67
[2019-02-21] MEDS: ATORVASTATIN CALCIUM 20MG TABLET PO SCH (20:35)
[2019-02-21] MEDS: FAMOTIDINE 20MG TABLET PO SCH (20:35)
[2019-02-21] MEDS: EPOETIN ALFA 10000UNITS/ML VIAL SUBCUT SCH (21:47)
[2019-02-22] VITALS: BP 109/46
[2019-02-22 04:00] VITALS: BP 124/74
[2019-02-22] MEDS: SODIUM CHLORIDE 0.9% INJ 3ML FLUSH IVF SCH ×2 (06:00→21:43)
[2019-02-22 07:47] LABS: BASOPHILS % 0.5 % (0.0-2.0); HEMATOCRIT. 26.7 % (42.0-52.0); HEMOGLOBIN. 8.8 g/dL (14.0-18.0); LYMPHOCYTES % 20.4 % (20.0-50.0); MEAN CORPUSCULAR VOLUME 94.3 fL (80.0-94.0); MEAN PLATELET VOLUME 9.3 fl (7.4-10.4); MONOCYTES % 9.5 % (2.0-8.0); NEUTROPHILS % 64.6 % (40.0-76.0); PLATELET 125 x1000/uL (130-400); RED BLOOD CELL COUNT 2.83 mill/uL (4.7-6.1); RED CELL DISTRIBUTION WIDTH 18.8 % (11.6-14.6)
[2019-02-22 08:00] VITALS: BP 133/78
[2019-02-22] MEDS: CALCIUM ACETATE 667MG CAPSULE PO SCH ×3 (08:38→18:48)
[2019-02-22] MEDS: FINASTERIDE 5MG TABLET PO SCH (08:38)
[2019-02-22] MEDS: CARVEDILOL 12.5MG TABLET PO SCH ×2 (08:39→21:00)
[2019-02-22] MEDS: HYDRALAZINE HCL 100MG TABLET PO SCH ×2 (08:39→21:00)
[2019-02-22] MEDS: AMLODIPINE 5MG TABLET PO SCH ×2 (08:39→21:00)
[2019-02-22] MEDS: TAMSULOSIN HCL 0.4MG SR CAPSULE PO SCH (08:40)
[2019-02-22 12:00] VITALS: BP 106/58
[2019-02-22 16:00] VITALS: BP 100/51
[2019-02-22 20:00] VITALS: BP 124/72
[2019-02-23] VITALS: BP 125/82
[2019-02-23] MEDS: FAMOTIDINE 20MG TABLET PO SCH ×2 (00:20→21:49)
[2019-02-23] MEDS: ATORVASTATIN CALCIUM 20MG TABLET PO SCH ×2 (00:20→21:49)
[2019-02-23 04:00] VITALS: BP 126/80
[2019-02-23] MEDS: SODIUM CHLORIDE 0.9% INJ 3ML FLUSH IVF SCH ×3 (05:07→22:09)
[2019-02-23 07:37] LABS: BASOPHILS % 0.4 % (0.0-2.0); EOSINOPHILS % 4.6 % (0.0-5.0); HEMATOCRIT. 26.4 % (42.0-52.0); HEMOGLOBIN. 8.7 g/dL (14.0-18.0); LYMPHOCYTES % 19.8 % (20.0-50.0); MEAN CORPUSCULAR HEMOGLOBIN 30.6 pg (28.0-32.0); MEAN CORPUSCULAR VOLUME 93.1 fL (80.0-94.0); MEAN PLATELET VOLUME 9.3 fl (7.4-10.4); MONOCYTES % 10.3 % (2.0-8.0); NEUTROPHILS % 64.9 % (40.0-76.0); PLATELET 121 x1000/uL (130-400); RED BLOOD CELL COUNT 2.83 mill/uL (4.7-6.1); RED CELL DISTRIBUTION WIDTH 18.3 % (11.6-14.6)
[2019-02-23 07:42] LABS: PHOSPHORUS 5.1 mg/dL (2.5-4.9)
[2019-02-23 08:00] VITALS: BP 120/74
[2019-02-23] MEDS: CALCIUM ACETATE 667MG CAPSULE PO SCH ×3 (09:36→17:25)
[2019-02-23] MEDS: FINASTERIDE 5MG TABLET PO SCH (09:36)
[2019-02-23] MEDS: HYDRALAZINE HCL 100MG TABLET PO SCH ×2 (09:37→21:00)
[2019-02-23] MEDS: TAMSULOSIN HCL 0.4MG SR CAPSULE PO SCH (09:37)
[2019-02-23] MEDS: AMLODIPINE 5MG TABLET PO SCH (09:38)
[2019-02-23] MEDS: CARVEDILOL 12.5MG TABLET PO SCH ×2 (09:38→21:51)
[2019-02-23 12:00] VITALS: BP 106/63
[2019-02-23 16:00] VITALS: BP 103/59
[2019-02-23 20:00] VITALS: BP 122/66
[2019-02-23] MEDS: AMLODIPINE 10MG TABLET PO SCH (21:00)
[2019-02-23] MEDS: EPOETIN ALFA 10000UNITS/ML VIAL SUBCUT SCH (21:52)
[2019-02-24] VITALS: BP 120/70
[2019-02-24 04:00] VITALS: BP 138/85
[2019-02-24] MEDS: SODIUM CHLORIDE 0.9% INJ 3ML FLUSH IVF SCH ×3 (05:09→21:00)
[2019-02-24 05:54] LABS: BASOPHILS % 0.4 % (0.0-2.0); EOSINOPHILS % 3.9 % (0.0-5.0); HEMATOCRIT. 28.5 % (42.0-52.0); HEMOGLOBIN. 9.4 g/dL (14.0-18.0); LYMPHOCYTES % 22.2 % (20.0-50.0); MEAN CORPUSCULAR HEMOGLOBIN 30.7 pg (28.0-32.0); MEAN CORPUSCULAR VOLUME 93.1 fL (80.0-94.0); MEAN PLATELET VOLUME 9.4 fl (7.4-10.4); MONOCYTES % 12.4 % (2.0-8.0); NEUTROPHILS % 61.1 % (40.0-76.0); PLATELET 126 x1000/uL (130-400); RED BLOOD CELL COUNT 3.06 mill/uL (4.7-6.1); RED CELL DISTRIBUTION WIDTH 18.2 % (11.6-14.6)
[2019-02-24 06:21] LABS: PHOSPHORUS 5.9 mg/dL (2.5-4.9)
[2019-02-24] MEDS: CALCIUM ACETATE 667MG CAPSULE PO SCH ×3 (07:50→17:07)
[2019-02-24 08:00] VITALS: BP 125/77
[2019-02-24] MEDS: TAMSULOSIN HCL 0.4MG SR CAPSULE PO SCH (08:56)
[2019-02-24] MEDS: CARVEDILOL 12.5MG TABLET PO SCH ×2 (08:56→21:00)
[2019-02-24] MEDS: HYDRALAZINE HCL 100MG TABLET PO SCH ×2 (08:56→21:00)
[2019-02-24] MEDS: FINASTERIDE 5MG TABLET PO SCH (08:57)
[2019-02-24] MEDS: AMLODIPINE 10MG TABLET PO SCH (08:57)
[2019-02-24 12:00] VITALS: BP_SYST 92; BP_SYST 93; BP_DIAS 56; BP_DIAS 61
[2019-02-24] MEDS: DIPHENHYDRAMINE 50MG/ML VIAL IV PRN (12:43)
[2019-02-24 16:00] VITALS: BP_SYST 112; BP_SYST 97; BP_DIAS 55; BP_DIAS 64
[2019-02-24 20:00] VITALS: BP 110/61
[2019-02-24] MEDS: FAMOTIDINE 20MG TABLET PO SCH (20:43)
[2019-02-24] MEDS: ATORVASTATIN CALCIUM 20MG TABLET PO SCH (20:43)
[2019-02-24] MEDS: AMLODIPINE 5MG TABLET PO SCH (21:00)
[2019-02-25] VITALS: BP 110/60
[2019-02-25 04:00] VITALS: BP 115/73
[2019-02-25] MEDS: SODIUM CHLORIDE 0.9% INJ 3ML FLUSH IVF SCH (05:58)
[2019-02-25 06:04] LABS: BASOPHILS % 0.4 % (0.0-2.0); EOSINOPHILS % 3.3 % (0.0-5.0); HEMATOCRIT. 26.9 % (42.0-52.0); HEMOGLOBIN. 8.9 g/dL (14.0-18.0); LYMPHOCYTES % 25.5 % (20.0-50.0); MEAN CORPUSCULAR HEMOGLOBIN 30.7 pg (28.0-32.0); MEAN CORPUSCULAR VOLUME 93.2 fL (80.0-94.0); MEAN PLATELET VOLUME 9.1 fl (7.4-10.4); MONOCYTES % 12.4 % (2.0-8.0); NEUTROPHILS % 58.4 % (40.0-76.0); PLATELET 134 x1000/uL (130-400); RED BLOOD CELL COUNT 2.89 mill/uL (4.7-6.1); RED CELL DISTRIBUTION WIDTH 17.9 % (11.6-14.6)
[2019-02-25 06:30] LABS: CHLORIDE 105 mEq/L (98-107)
[2019-02-25 06:38] LABS: PHOSPHORUS 5.1 mg/dL (2.5-4.9)
[2019-02-25 08:00] VITALS: BP 130/75
[2019-02-25] MEDS: CALCIUM ACETATE 667MG CAPSULE PO SCH ×2 (08:13→12:50)
[2019-02-25] MEDS: CARVEDILOL 12.5MG TABLET PO SCH (09:00)
[2019-02-25] MEDS: HYDRALAZINE HCL 100MG TABLET PO SCH (09:00)
[2019-02-25] MEDS: AMLODIPINE 5MG TABLET PO SCH (09:00)
[2019-02-25] MEDS ORDERED: HEPARIN SODIUM 1,000 UNIT/1ML VIAL IV NR (11:00)
[2019-02-25 12:00] VITALS: BP 101/56
[2019-02-25] MEDS: FINASTERIDE 5MG TABLET PO SCH (12:50)
[2019-02-25] MEDS: TAMSULOSIN HCL 0.4MG SR CAPSULE PO SCH (12:50)
[2019-02-25 14:58] VITALS: BP 99/67
[2019-02-25 16:00] VITALS: BP 103/66
== END 2019-02-25 16:50 | disposition home or self-care (01) | DRG 190 ==
LOC: ER 07:43 → 3WST 10:02 → EDBEDREQTM 10:13 → EDBEDREQ 10:13 → ENRESERV 11:05 → CANRESERV 11:05 → EDBEDREQSVC 11:50 → EDBEDREQTM 15:13 → ENRESERV 19:19 → 7WST 02-05 02:15 → 6EST 02-14 12:10
PROVIDERS: ADMIT Internal Medicine; ATTEND Internal Medicine
PROC: 02HV33Z Insertion of Infusion Device into Superior Vena Cava, Percutaneous Approach (ICD-10-PCS; 2019-01-29)
PROC: B548ZZA Ultrasonography of Superior Vena Cava, Guidance (ICD-10-PCS; 2019-01-29)
PROC: 5A1D70Z Performance of Urinary Filtration, Intermittent, Less than 6 Hours Per Day (ICD-10-PCS; 2019-01-29)
PROC: 30233N1 Transfusion of Nonautologous Red Blood Cells into Peripheral Vein, Percutaneous Approach (ICD-10-PCS; principal; 2019-01-30)
PROC: 5A09357 Assistance with Respiratory Ventilation, Less than 24 Consecutive Hours, Continuous Positive Airway Pressure (ICD-10-PCS; 2019-01-30)
PROC: 5A1D70Z Performance of Urinary Filtration, Intermittent, Less than 6 Hours Per Day (ICD-10-PCS; 2019-01-30)
PROC: 02PAX3Z Removal of Infusion Device from Heart, External Approach (ICD-10-PCS; 2019-01-31)
PROC: 02HV33Z Insertion of Infusion Device into Superior Vena Cava, Percutaneous Approach (ICD-10-PCS; 2019-01-31)
PROC: 0JH63XZ Insertion of Tunneled Vascular Access Device into Chest Subcutaneous Tissue and Fascia, Percutaneous Approach (ICD-10-PCS; 2019-01-31)
PROC: B5181ZA Fluoroscopy of Superior Vena Cava using Low Osmolar Contrast, Guidance (ICD-10-PCS; 2019-01-31)
PROC: 5A1D70Z Performance of Urinary Filtration, Intermittent, Less than 6 Hours Per Day (ICD-10-PCS; 2019-02-01)
PROC: 5A1D70Z Performance of Urinary Filtration, Intermittent, Less than 6 Hours Per Day (ICD-10-PCS; 2019-02-04)
PROC: 5A1D70Z Performance of Urinary Filtration, Intermittent, Less than 6 Hours Per Day (ICD-10-PCS; 2019-02-05)
PROC: 5A1D70Z Performance of Urinary Filtration, Intermittent, Less than 6 Hours Per Day (ICD-10-PCS; 2019-02-08)
PROC: 5A1D70Z Performance of Urinary Filtration, Intermittent, Less than 6 Hours Per Day (ICD-10-PCS; 2019-02-11)
PROC: 5A1D70Z Performance of Urinary Filtration, Intermittent, Less than 6 Hours Per Day (ICD-10-PCS; 2019-02-13)
PROC: 5A1D70Z Performance of Urinary Filtration, Intermittent, Less than 6 Hours Per Day (ICD-10-PCS; 2019-02-15)
PROC: 5A1D70Z Performance of Urinary Filtration, Intermittent, Less than 6 Hours Per Day (ICD-10-PCS; 2019-02-18)
PROC: 5A1D70Z Performance of Urinary Filtration, Intermittent, Less than 6 Hours Per Day (ICD-10-PCS; 2019-02-20)
PROC: 5A1D70Z Performance of Urinary Filtration, Intermittent, Less than 6 Hours Per Day (ICD-10-PCS; 2019-02-22)
PROC: 5A1D70Z Performance of Urinary Filtration, Intermittent, Less than 6 Hours Per Day (ICD-10-PCS; 2019-02-25)
DX: I21.4 Non-ST elevation (NSTEMI) myocardial infarction (principal); J96.91 Respiratory failure, unspecified with hypoxia; N17.9 Acute kidney failure, unspecified; E44.0 Moderate protein-calorie malnutrition; D69.6 Thrombocytopenia, unspecified; E87.1 Hypo-osmolality and hyponatremia; I13.2 Hypertensive heart and chronic kidney disease with heart failure and with stage 5 chronic kidney disease, or end stage renal disease; I50.43 Acute on chronic combined systolic (congestive) and diastolic (congestive) heart failure; N18.6 End stage renal disease; E87.2 Acidosis; E87.5 Hyperkalemia; I27.20 Pulmonary hypertension, unspecified; I42.0 Dilated cardiomyopathy; N13.8 Other obstructive and reflux uropathy; D63.1 Anemia in chronic kidney disease; N13.30 Unspecified hydronephrosis; N25.81 Secondary hyperparathyroidism of renal origin; R31.0 Gross hematuria; N40.1 Benign prostatic hyperplasia with lower urinary tract symptoms; I35.1 Nonrheumatic aortic (valve) insufficiency; Z82.49 Family history of ischemic heart disease and other diseases of the circulatory system; Z68.23 Body mass index [BMI] 23.0-23.9, adult
CPT/HCPCS: 36010; 36415; 36589; 71045; 76770; 76937; 77001; 80048; 81003; 82270; 82550; 82553; 83036; 83520; 83540; 83550; 83735; 83880; 84100; 84153; 84443; 84484; 85379; 86160; 86256; 86592; 86705; 86706; 86803; 86850; 86900; 86920; 87340; 87389; 93005; 93306; 93970; 94640; 94660; 99152; 99153; C1750; C1752; C1769; C1887; J0690; J0696; J0885; J1200; J1642; J1644; J2930; J3010; J3475; J3490; J7060; J7611; P9016; A4315; G0103; G0500